=== PATIENT | female | born 1955 | race Caucasian/White ===

== ENCOUNTER 2020-05-31 15:31 | Emergency (ER) | payer OTHER ==
[~2020-05-31] VITALS: Ht 162.6 cm; Wt 54.4 kg
[~2020-05-31 15:31] MED LIST: CLONAZEPAM 0.50.5 M1 PO; LEVOTHYROXINE 0.1 MG PO; MULTIVITAMINS1 EAC7 PO; NEURONTIN 400M400 M2 PO; NORCO 5-325 TA1 EACH PO; TRAMADOL 50 MG50 MG PO; TRIGLIDE160 M1 PO; VITAMIN D 5050000 I1 PO; VITAMIN D32000 UNIT PO; XANAX 0.5 MG0.5 MG PO; ZANAFLEX4 M1 PO
[2020-05-31 15:32] VITALS: BP 155/80
[2020-05-31 16:01] LABS: URINE BILIRUBIN NEGATIVE (Negative); URINE BLOOD NEGATIVE (Negative); URINE CLARITY CLEAR; URINE COLOR YELLOW; URINE GLUCOSE-RANDOM* NEGATIVE (Negative); URINE KETONES NEGATIVE (Negative); URINE LEUKOCYTES-REFLEX NEGATIVE (Negative); URINE NITRITE-REFLEX NEGATIVE (Negative); URINE PROTEIN (DIPSTICK) NEGATIVE (Negative); URINE UROBILINOGEN 0.2 E.U./dl (0.2-1.0)
[2020-05-31 16:53] LABS: ABSOLUTE NEUTROPHILS 4.5 thou/uL (1.4-8.2); BASOPHILS 0.3 % (0.0-2.0); EOSINOPHILS 1.4 % (0.0-3.0); HEMOGLOBIN 11.2 gm/dL (12.0-15.0); LYMPHOCYTES 25.6 % (24.0-44.0); MCH 29.4 pg (26.0-34.0); MONOCYTES 6.3 % (1.0-8.0); PLATELET COUNT 266 thou/uL (150-400); POLYS 66.4 % (36.0-66.0); RBC 3.82 mil/uL (4.20-5.00); RDW 13.3 % (10.5-14.5); WBC 6.8 thou/uL (4.0-11.0)
[2020-05-31 17:01] LABS: CALCIUM 9.7 mg/dL (8.5-10.1); CREATININE 0.6 mg/dL (0.6-1.0); MAGNESIUM 1.9 mg/dL (1.8-2.4); POTASSIUM 3.9 mmol/L (3.5-5.1)
--- NOTE | 2020-05-31 21:33 | NUR ---
REPORT CALLED TO RN ON UNIT.
[2020-05-31 21:45] VITALS: BP 154/68
[2020-05-31 22:01] LABS: ALBUMIN 4.2 g/dL (3.4-5.0)
[2020-05-31 22:03] LABS: AMP/METHAMP Negative (Negative); BARBITURATES Negative (Negative); BENZODIAZEPINES Negative (Negative); COCAINE Negative (Negative); METHADONE Negative (Negative); OPIATES Negative (Negative); PCP Negative (Negative)
--- NOTE | 2020-06-07 07:55 | EKG ---
[place] [address] [address] ELECTROCARDIOGRAM REPORT Name: NOELLE SALAZAR [id number] Admission: 05/31/20 Attend Phys: Discharge: 05/31/20 Date of : 51 Report #: [id number] [facility] ED Test Date: 2020-05-31 Test Time: 17:31:47 Pat Name: NOELLE SALAZAR Department: Room: 170 Gender: F Administration Manager: EZRA : 1955 Requested By: Kendell Hanley Order Number: [id number] MD: Jose Espitia Measurements Intervals [place] Rate: 79 P: 64 MT: 140 QRS: 26 QRSD: 86 T: 58 QT: 355 QTc: 407 Interpretive Statements Sinus rhythm Probable left atrial enlargement Baseline wander in lead(s) V2 No previous ECG available for comparison Electronically Signed On 06-01-2020 7:22:16 FBI INVESTIGATOR by Jose Espitia [email or web address] <ELECTRONICALLY SIGNED> By: Jose Espitia MD, [facility] 06/01/20 0722 1731 1731 Jose Espitia MD, FACC /EPI
== END 2020-05-31 21:51 | disposition still patient (30) ==
LOC: ER 15:31 → EROBS 17:39 → ER 21:51
PROVIDERS: Emergency Medicine; Hospitalist
DX: R41.0 Disorientation, unspecified (principal); Z20.828 Contact with and (suspected) exposure to other viral communicable diseases; E05.90 Thyrotoxicosis, unspecified without thyrotoxic crisis or storm; Z98.890 Other specified postprocedural states; Z79.899 Other long term (current) drug therapy; Z88.2 Allergy status to sulfonamides

== ENCOUNTER 2020-05-31 21:50 | Inpatient (IN) | payer OTHER ==
[~2020-05-31] VITALS: Ht 162.6 cm; Wt 55.9 kg
[2020-05-31 21:00] VITALS: BP 148/64
[2020-06-01 04:13] VITALS: BP 138/50
--- NOTE | 2020-06-01 05:48 | NUR ---
ADMIT PT ADMITTED FROM THE ED INTO ROOM 220 FOR R/O COVID, UTI,AND AGRESSIVE BEHAVIOR. PT ALERT AND ORIENTED. COOPERATIVE WITH CARES REUSED TO PUT A GOWN ON BUT ANSWERED ADMISSION QUESTIONS WHEN ASKED. VSS PT SLEEPING MOST OF SHIFT
[2020-06-01 06:41] LABS: % SATURATION 14 % (20-39); IRON 37 ug/dL (50-170); TIBC 273 ug/dL (250-450)
[2020-06-01 08:35] VITALS: BP 113/81
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
--- NOTE | 2020-06-01 14:20 | NUR ---
Alert and orientated X3. Denies SI/HI. Some confusion, can't remember day. Concerned about wanting to be discharged. Up ambulating in room with regular, steady gait. Breath sounds clear. COVID test done per R nare around 1200. Reg HR auscultated. Color pink with brisk capillary refill and palpable peripheral pulses. Independent with voiding. States last BM was "earlier in week" and then said she thought maybe Thurs. Hat placed in toilet to test for occult bld. Active bowel sounds over soft, flat abdomen. Calm and cooperative t/o AM, went to CT around 10AM per WC.
[2020-06-01 21:20] VITALS: BP 147/74
--- NOTE | 2020-06-02 02:45 | NUR ---
Assumed care of patient this pm shift. Patient in good spirits, calm and cooperative. Alert and oriented x3. Takes medications whole with thin fluids. Affect is blunted. Patient is ambulatory with a steady gait. Patient denies pain, denies hi/si. Assessment shows no signs of acute distress. Patient tends to want to wander out of her room but is easily redirectable. Continent of bowel and bladder. We will continue to monitor per hospital policy.
[2020-06-02 07:00] VITALS: BP 120/62
--- NOTE | 2020-06-02 08:00 | NUR ---
ASSUMED PATIENT CARE AT 0700, PATIENT WAS IN HER ROOM RESTING. PATIENT WAS ALERT AND ORIENTED 1X TO SELF. PATIENT WAS CONFUSED. PATIENT WAS CALM AND COOPERATIVE WITH CARE. PATIENT STATED HER GOAL WAS TO GO WALK IN THE PARK, AND HER CONCERNS WAS TO GET OUT OF HER ROOM. PATIENT VITAL SIGNS WERE STABLE. PATIENT DOES NOT HAVE ANY SIGNS OF RESPIRATORY DISTRESS, PATIENT DO NOT HAVE ANY COUGH SYMPTOMS. OCCATIONALLY PATIENT TRIES TO COME OUT OF HER ROOM.
[2020-06-02 09:08] LABS: HIV ANTIBODY Non Reactive (Non Reactive)
--- NOTE | 2020-06-02 11:18 | NUR ---
LIVESTOCK SHOWMAN attempt x2 (06/01, 06/02) to reach patient via in room telephone to complete recreation assessment. No success.
--- NOTE | 2020-06-02 11:50 | NUR ---
PT NEEDED SECOND COVID TEST BEFORE GOING UPSTAIRS TO [facility]. PT ALLOWED THIS CLINICAL LABORATORY MANAGER TO PLACE STERILE STICK INTO NOSE FOR A SECOND. PT DIDN'T ALLOW THIS CLINICAL LABORATORY MANAGER TO GO INTO NOSE ANY DEEPER. PT STATED YOU DID IT FINE. PT UP AD KATHARINE IN ROOM AND OCCASIONALLY WANTS TO COME OUT OF ROOM. PT REDIRECTED TO STAY IN ROOM.
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
--- NOTE | 2020-06-02 16:52 | NUR ---
Notified DR WATSON OF NEGATIVE COVID RESULTS, ACCEPTED TO TRANSFER TO [facility]. PATIENT LEFT VIA WHEELCHAIR WITH STAFF MEMBER.PATIENT WAS HANGING OUT AT THE DOOR WANTING TO GET OUT BEFORE TRANSFER.
--- NOTE | 2020-06-02 17:11 | NUR ---
GAVE REPORT TO MASOOD PORTER AT [facility].
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
[2020-06-02 19:41] VITALS: BP 129/50
--- NOTE | 2020-06-03 02:54 | NUR ---
ASSUMED CARE ON 06/02/20 @ 1900, WANDERS INTO OTHER PATIENT'S ROOMS, REDIRECTABLE, THEN WANDERS INTO SOME ONE ELSE'S ROOM. WHEN PROVIDED MEDICATIONS, DID SOMETHING SNEEKY AND SEEMED TO BE TRYING TO HIDE THE MEDS IN HER CLOTHES. ASKED TO PUT THE MEDS BACK INTO THE CUP, WHICH SHE DID, IT SEEMS LIKE SHE SWOLLOWED THE MEDS, BUT WILL WATCH CLOSELY UPON FUTURE MEDICAITON ADMINISTRATION.
[2020-06-03 04:32] VITALS: BP 129/50
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
[2020-06-03 09:13] VITALS: BP 132/76
--- NOTE | 2020-06-03 10:23 | NUR ---
Yesterday SW asked [facility] to screen pt for Medicaid for possible [facility] placement. SW received a copy of pt's DPOA docs. SW team will continue to follow pt during her stay on this unit.
--- NOTE | 2020-06-03 11:55 | NUR ---
1155 RESUMMED CARE FROM OVERNIGHT SHIFT THIS AM, PATIENT IN DAYROOM QUIET. PATIENT ATE BREAKFAST TOOK MEDICATION WITHOUT INCIDENCE PATIENTS ABDOMEN SOFT ROUND. BOWEL SOUNDS PRESENT LUNGS CLEAR PATIENT ORIENTED TIMES 4 DENIES SI/HI/AH/VH AT PRESENT. PATIENT CALM COOPERATIVE INTERACTS WITH OTHER PATIENTS PARTICIPATES IN GROUPS. WILL CONTINUE TO MONITOR PATIENT FOR SAFETY AND BEHAVIORS.
--- NOTE | 2020-06-03 12:06 | NUR ---
JANELLE and Dr. Vann spoke to pt's daughter Kristin and provided an update including that pt has been moved to the [facility] unit. JANELLE and Kristin also talked about placement; Dr. Vann recommends memory care. Pt has a $58,000 life insurance policy that Kristin is the beneficiary of. She is planning to utilize these funds to place pt. Kristin will contact the life insurance [employer] to find out what is needed to gain access to those funds. JANELLE will send out referrals to various [place] facilities for pt. SW team will continue to follow pt during her stay on this unit.
[2020-06-03 20:06] LABS: SYPHILIS AB Non Reactive (Non Reactive)
[2020-06-03 20:49] VITALS: BP 136/63
[2020-06-04 09:59] VITALS: BP 141/54
--- NOTE | 2020-06-04 12:17 | NUR ---
JANELLE spoke with Kristin who said her first choice for placement is [facility]. She will be touring the facility tomorrow. SW team will continue to follow pt during her stay on this unit
--- NOTE | 2020-06-04 12:39 | NUR ---
1230 RESUMMED CARE FROM OVERNIGHT SHIFT THIS AM, PATIENT IN DAYROOM INTERACTING WITH ANOTHER PATIENT. PATIENT ATE BREAKFAST TOOK MEDICATION WITHOUT INCIDENCE. PATIENTS ABDOMEN SOFT FLAT BOWEL SOUNDS PRESENT LUNGS CLEAR PATIENT DENIES SI/HI/AH/VH AT PRESENT. PATIENT IS SLOW TO RESPOND WHEN ASKING QUESTIONS SHE PAUSES LIKE SHE HAS TO THINK OF WHAT TO SAY. PATIENT IS ALERT AND ORIENTED TO SELF AND PLACE AND SEEMS FORGETFUL AT TIMES. PATIENT LIKES TO WALK THE HALLS NO BEHAVIORS. WILL CONTINUE TO MONITOR PATIENT FOR SAFETY AND BEHAVIORS.
[2020-06-04 20:34] VITALS: BP 135/63
--- NOTE | 2020-06-05 04:33 | NUR ---
ASSUMED PT'S CARE THIS PM SHIFT. PT ORIENTED TO SELF. CONFUSED. PT WAS CALM AND COOPERATIVE WITH CARE. NO AGITATION OR AGRESSION. PT TOOK MEDS PER EMAR. PT SLEPT OFF AND ON. KEPT CLOSING DOOR. EDUCATION ON LEAVING DOOR OPEN DID NOT SEEM TO HAVE MADE ANY IMPACT. PT AMBULATES INDEPENDENTLY. WILL CONTINUE TO MONITOR.
[2020-06-05 08:16] VITALS: BP 158/60
--- NOTE | 2020-06-05 09:44 | NUR ---
SW received notice from the UR department that pt's stay is unpaid as of 06/04. SW team will continue to follow pt during her stay on this unit.
--- NOTE | 2020-06-05 13:47 | NUR ---
ASSUMED PATIENT CARE AT AM SHIFT. PATIENT WAS SITTING QUIETLY IN THE DAY ROOM. PATIENT WAS COOPERATIVE WITH CARE AND MEDICATION. PATIENT ATE BOTH BREAKFAST AND LUNCH. PATIENT INTERACT WITH OTHER PATIENT AND SHE ALSO PARTICIPATES IN GROUP ACTIVITIES.PATIENT VITALS SIGNS WERE STABLE. PATIENT IS ALERT AND ORIENTED 1X WHICH IS TO SELF, SHE IS MOSTLY CONFUSED. PATIENT WAS PLEASANT, THERE WAS NO SIGNS OF AGITATION. SHE MOSTLY IN THE ROOM.
[2020-06-05 19:19] VITALS: BP 145/58
[2020-06-06] MEDS ORDERED: LEVOTHYROXINE75 MCG PO (09:55)
--- NOTE | 2020-06-06 11:17 | NUR ---
PT CARE ASSUMED AT 0700. A&O TO SELF. PT WALKING THE HALLS. TAKING PILLS WHOLE WITH WATER. PARTICIPATING IN GROUP THERAPY. VITALS STABLE. ATE ALL MEALS WITHOUT DIFFICULTY. NEEDING STOOL SAMPLE.
[2020-06-06 20:19] VITALS: BP 153/73
--- NOTE | 2020-06-07 03:34 | NUR ---
Assumed care for patient this PM shift. Pt presents with a blunted affect. Pt is calm, cooperative and pleasant. Pt is A&O x 2. Pt is ambulatory with a steady gait. Pt was medication compliant. Pt denies pain, SI/HI. No acute distress noted. Pt is continent of bowel and bladder. Pt has remained in her room throughout this shift. Will continue to monitor for any changes and safety.
[2020-06-07 06:18] LABS: HEMATOCRIT 37.7 % (37.0-47.0); HEMOGLOBIN 12.3 gm/dL (12.0-15.0); MCH 29.2 pg (26.0-34.0); MCHC 32.7 g/dL (28.0-37.0); MCV 89.4 fL (80.0-100.0); RBC 4.21 mil/uL (4.20-5.00); WBC 6.2 thou/uL (4.0-11.0)
[2020-06-07 06:23] LABS: CREATININE 0.6 mg/dL (0.6-1.0); POTASSIUM 3.5 mmol/L (3.5-5.1)
[2020-06-07 07:50] VITALS: BP 153/69
--- NOTE | 2020-06-07 09:18 | NUR ---
ASSUMED CARE [id number] THIS MORNING. PT. UP, DRESSED AND IN THE DINING ROOM. SHE PRESENTS WITH A BLUNTED AFFECT. SHE WAS PLEASANT AND COOPERATIVE WITH ASSESSMENT AND TAKING MORNING MEDICATIONS. NO ABNORMAL FINDING FOUND DURING ASSESSMENT.
--- NOTE | 2020-06-07 14:27 | NUR ---
JANELLE spoke to CLAY Marcelo with [facility] [phone] and assisted in the completion of a video assessment. [facility] reports they can accept pt. They need two forms completed by the attending physician. JANELLE emailed the requested forms to Dr. Sherman. Patient also needs to have a negative TB and COVID test. JANELLE team will continue to monitor.
--- NOTE | 2020-06-07 14:42 | NUR ---
JANELLE spoke to dtr Kristin who informed SW that she is planning to supervisor opening and picking patient on . She is waiting for the funds to be released from [facility] before she can secure placement for patient. She states movers are coming on Sunday so she will be able to come on to supervisor opening and picking patient. JANELLE informed rKistin that pt's hospital stay is not being covered by insurance as of 06/04. Kristin expressed an understanding and stated her hands were tied until the payor source releases the funds for her to secure placement for her mother. JANELLE informed the Dir would be notified and there may need to be additional conversation about this. Kristin stated she understood and had to go to get on another call. JANELLE updated team. JANELLE team will continue to monitor.
--- NOTE | 2020-06-07 15:28 | NUR ---
RT Progress Note- Barbie has been active in recreation therapy groups since her move out of isolation. She is cooperative and does not display any aggressive behavior. During group interactions she is soft spoken and reserved, but contributes to discussions with encouragement. SENIOR GRANT WRITER will continue to encourage participation.
[2020-06-07 20:07] VITALS: BP 151/66
--- NOTE | 2020-06-08 04:38 | NUR ---
Assumed care of patient this pm shift. Patient is fairly reserved, in her room during assessment. Patient is alert and oriented to self, place, and situation. Patient takes medications whole. Affect is blunted. Denies hi/si. Patient ambulates with a steady gait. Assessment shows no signs of acute distress. We will continue to monitor per hospital policy.
--- NOTE | 2020-06-08 04:45 | NUR ---
Lab informed staff that patient is covid positive.
[2020-06-08 07:55] VITALS: BP 152/53
--- NOTE | 2020-06-08 11:20 | NUR ---
JANELLE was told by Dr. Sherman that [facility] has agreed to accept pt to facility on 06/10. JANELLE contacted Roberto with PM at [phone]. JANELLE team will continue to monitor pt during her stay on this unit.
--- NOTE | 2020-06-08 12:29 | NUR ---
Care assumed of patient at 0715: Patient had positive PCR Covid and is in isolation to her room. Provided meals in room. Provided puzzles, markers, coloring sheets and activities to complete in her room. Took AM medication without difficulty. Ate breakfast independently. Alert and oriented to person. Pleasantly confused. Denies SI/HI/AH/VH. No delusional or paranoia behaviors observed. Has been compliant with staying in her room and following isolation protocol.
[2020-06-08 19:23] VITALS: BP 150/68
--- NOTE | 2020-06-09 05:04 | NUR ---
Assumed care of patient this pm shift. Patient is isolative and tends to stay in her room. Alert and oriented x3. Affect flat. Denies hi/si. Patient takes medications whole with thin liquids. Ambulates without assistance. Calm and cooperative. Continent of bowel and bladder. No negative behaviors seen this shift. Slept through the night. We will continue to monitor per hospital policy.
--- NOTE | 2020-06-09 12:46 | NUR ---
Alert and orientated to self only. Knew she was in hospital but did not know name. Knew year but gave a day in November for date. Denies SI/HI. Breath sounds clear. Reg HR auscultated. Color pink with brisk capillary refill and palpable peripheral pulses. Independent with voiding. Active bowel sounds over soft, rounded abdomen. Ambulating in room without s/o distress. Plan on transferring to COVID unit this afternoon.
--- NOTE | 2020-06-09 15:34 | NUR ---
Patient being transferred to room 220. Spoke with IVETTE Foster to notify her of transfer of rooms. Kristin reports she will be picking up patient for discharge tomorrow, 06/10/20, at 0940. Plans to enter the ED entrance and picking her up from there. Report called to CHARLOTTE Robison, on SICU. Patient transported with chart and all personal belongings on the unit.
[2020-06-09 16:10] VITALS: BP 149/68
--- NOTE | 2020-06-09 16:11 | NUR ---
1559 PATIENT TRANSFERED TO SICU VIA WC ACCOMPANIED BY STAFF. PATIENT TO ROOM 220 AND PATIENT TRANSFERED TO BED WITH NO ASSISTANCE. PATIENT ALERT AND ORIENTED X1 TO SELF. PATIENT DENIES PAIN. REQUESTS COLD WATER IN MUG. VS ON ADMIT TO UNIT BP 149/68 P 91 R 18 T 97.9 O2 SATS 98%. PATIENT IS CALM AND COOPERATIVE, DENIES OTHER NEEDS. PATIENT DRESSED IN OWN CLOTHING WITH NON SLIP SOCKS ON. TV ON PER PATIENT REQUEST. WILL CONTINUE TO OBSERVE
[2020-06-09 20:15] VITALS: BP 152/76
--- NOTE | 2020-06-10 04:16 | NUR ---
NO EVENTS OVERNIGHT. PT ORIENTED TO SELF. SHE DENIES PAIN. PT PLANNED TO DC TODAY. WILL CONTINUE TO MONITOR AND FOLLOW POC
[2020-06-10 04:53] VITALS: BP 126/68
[2020-06-10] MEDS ORDERED: VITAMIN B-1100 M2 PO (07:53)
[2020-06-10] MEDS ORDERED: VITAMIN D325 MC1 PO (07:53)
[2020-06-10] MEDS ORDERED: HALOPERIDOL 1 MG1 MG PO (07:53)
[2020-06-10] MEDS ORDERED: NAMENDA 5 MG TAB5 M1 PO (07:53)
[2020-06-10] MEDS ORDERED: EXELON1 EACH TRANSDERM (07:53)
[2020-06-10] MEDS ORDERED: TRAZODONE HCL50 MG PO (07:53)
[2020-06-10] MEDS ORDERED: IRON325 PO (07:53)
[2020-06-10 08:00] VITALS: BP 122/57
--- NOTE | 2020-06-10 08:15 | NUR ---
PT IN ROOM AND AWAKE. PT IN PLEASANT MOOD. PT ORIENTED TO SELF ONLY. PT TOOK MEDS WHOLE WITHOUT ANY ISSUES. PT HAS NO S/S OF COVID, NO FEVER OR COUGH. PT ABLE TO FEED SELF, PT UP WITH STEADY GAIT.
--- NOTE | 2020-06-10 10:00 | NUR ---
PT DTR [facility] IS HERE TO PICK HER UP TO GO TO [facility]. PT CONFUSED ABOUT LEAVING. PT DIDN'T WANT TO LEAVE HERE, REASSURED PT THAT SHE WILL GET NEW TYPES OF FOOD AND MEET NEW PEOPLE. I TOLD HER THAT [facility] WAS HERE TO GET HER AND SHE SAID THAT LITTLE BUTT.
== END 2020-06-10 10:00 | disposition designated cancer center or children's hospital (05) | DRG 881 ==
LOC: SBH 21:50 → SICU 21:50 → SBH 06-02 16:57 → SICU 06-09 16:01
PROVIDERS: Hospitalist; ADMIT Psychiatry & Neurology Psychiatry; ATTEND Psychiatry & Neurology Psychiatry
DX: F32.9 Major depressive disorder, single episode, unspecified (principal); U07.1 COVID-19; F29 Unspecified psychosis not due to a substance or known physiological condition; F41.9 Anxiety disorder, unspecified; E03.9 Hypothyroidism, unspecified; I10 Essential (primary) hypertension; Z71.6 Tobacco abuse counseling; Z79.899 Other long term (current) drug therapy; Z88.1 Allergy status to other antibiotic agents; Z88.2 Allergy status to sulfonamides; Z23 Encounter for immunization
CPT/HCPCS: 10880; 15000; 15002

== ENCOUNTER → 2021-04-12 | Outpatient (CLI) | payer OTHER ==
[~2021-04-12] MED LIST changes: +EXELON1 EACH TRANSDERM; +HALOPERIDOL 1 MG1 MG PO; +IRON325 PO; +LEVOTHYROXINE75 MCG PO; +NAMENDA 5 MG TAB5 M1 PO; +TRAZODONE HCL50 MG PO; +VITAMIN B-1100 M2 PO; +VITAMIN D325 MC1 PO
== END ==
LOC: SJCVC 10:24
PROVIDERS: ATTEND Internal Medicine
DX: U07.1 COVID-19 (principal); R94.31 Abnormal electrocardiogram [ECG] [EKG]; E78.5 Hyperlipidemia, unspecified; F29 Unspecified psychosis not due to a substance or known physiological condition; F03.91 Unspecified dementia, unspecified severity, with behavioral disturbance; M54.12 Radiculopathy, cervical region; E05.90 Thyrotoxicosis, unspecified without thyrotoxic crisis or storm; Z79.82 Long term (current) use of aspirin; Z79.899 Other long term (current) drug therapy; Z88.2 Allergy status to sulfonamides